=== PATIENT | female | born 1955 | race Caucasian/White ===

== ENCOUNTER → 2018-11-25 | Outpatient (CLI) | payer OTHER | END | disposition home or self-care (01) | LOC: HKI 15:19 | DX: M25.512 Pain in left shoulder (principal); Z85.118 Personal history of other malignant neoplasm of bronchus and lung | CPT/HCPCS: Z7500 ==

== ENCOUNTER → 2018-12-05 | Outpatient (CLI) | payer OTHER | END | disposition home or self-care (01) | LOC: HKI 10:32 | DX: M25.512 Pain in left shoulder (principal) | CPT/HCPCS: 20610 ==